=== PATIENT | male | born 1985 | race Caucasian/White ===

== ENCOUNTER 2019-11-07 23:33 | Emergency (ER) | payer SELFPAY ==
[~2019-11-07] VITALS: Ht 172.7 cm; Wt 81.6 kg
[2019-11-07 23:34] VITALS: BP 144/88
[2019-11-08] MEDS ORDERED: LIDOCAINE 1% Multi-Dose 20 ML VIAL. ONE (02:35)
[2019-11-08] MEDS ORDERED: DIPHTH,PERTUSS(ACELL),TET TOX 0.5 ML DISP.SYRIN. VAX IM ONE ×2 (02:35→03:00)
[2019-11-08] MEDS ORDERED: LIDOCAINE 1% Multi-Dose 20 ML VIAL. INJ ONE ×2 (02:45)
[2019-11-08] MEDS ORDERED: HYDROcodone/APAP 5/325MG 1 TAB TABLET ONE (04:38)
[2019-11-08] MEDS ORDERED: HYDROcodone/APAP 5/325MG 1 TAB TABLET PO ONE (05:00)
[2019-11-08] MEDS ORDERED: AMOX1TAB61 PO (05:14)
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
== END 2019-11-08 05:22 | disposition home or self-care (01) ==
LOC: ER 23:33
DX: S41.011A Laceration without foreign body of right shoulder, initial encounter (principal); F17.200 Nicotine dependence, unspecified, uncomplicated; F12.90 Cannabis use, unspecified, uncomplicated; X99.1XXA Assault by knife, initial encounter; Y93.89 Activity, other specified; Y92.89 Other specified places as the place of occurrence of the external cause; Y99.8 Other external cause status
CPT/HCPCS: 12004; 90471; 90715; 99283

== ENCOUNTER 2021-01-06 20:55 | Inpatient (IN) | payer OTHER ==
[~2021-01-06] VITALS: Ht 172.7 cm; Wt 86.5 kg
[~2021-01-06 20:55] MED LIST: AMOX1TAB61 PO
[2021-01-06] MEDS ORDERED: DOCUSATE SODIUM 100 MG CAPSULE. PO PRN (21:30)
[2021-01-06] MEDS ORDERED: ACETAMINOPHEN 325 MG TABLET. PO PRN (21:30)
[2021-01-06] MEDS ORDERED: LORazepam 0.5 MG TABLET PO PRN (21:30)
[2021-01-06] MEDS ORDERED: MAG HYDROX/ALUMINUM HYD/SIMETH 30 ML ORAL.SUSP PO PRN (21:30)
[2021-01-06] MEDS ORDERED: ALBUTEROL SULFATE 2.5 MG/3 ML NEBU. NEB PRN (21:30)
[2021-01-06] MEDS ORDERED: guaiFENesin ORAL 200 MG/10 ML LIQUID. PO PRN (21:30)
[2021-01-06] MEDS ORDERED: SODIUM PHOSPHATES 19/7GM 133 ML ENEMA. PR PRN (21:30)
[2021-01-06] MEDS ORDERED: 0.9 % SODIUM CHLORIDE 10 ML DISP.SYRIN. IV PRN (21:30)
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
[2021-01-06 21:39] VITALS: BP 139/80
[2021-01-06] MEDS ORDERED: HYDROcodon/APAP 7.5/325MG ORAL 15 ML SOLUTION PO PRN (21:45)
[2021-01-06] MEDS: ENOXAPARIN 40 MG/0.4 ML SYRINGE. SQ SCH (22:17)
[2021-01-06] MEDS: ONDANSETRON PF 4 MG/2 ML VIAL. IV PRN (22:17)
[2021-01-06] MEDS: IV NORMAL SALINE 1000ML BAG 1,000 ML IV SCH (22:18)
[2021-01-06] MEDS: HYDROmorphone 2 MG/ML VIAL IVP PRN (22:20)
[2021-01-06 22:55] VITALS: BP 142/81
[2021-01-07] MEDS: HYDROmorphone 2 MG/ML VIAL IVP PRN ×2 (02:49→07:57)
[2021-01-07 03:04] VITALS: BP 148/83
[2021-01-07 07:00] VITALS: BP 129/74
[2021-01-07] MEDS: IV NORMAL SALINE 1000ML BAG 1,000 ML IV SCH ×2 (07:56→17:30)
[2021-01-07] MEDS: ONDANSETRON PF 4 MG/2 ML VIAL. IV PRN (07:57)
[2021-01-07] MEDS ORDERED: FLU VACC QS 2020-21(6MOS+)/PF 0.5 ML SYRINGE. VAX IM ONE (09:00)
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
[2021-01-07] MEDS ORDERED: HYDROmorphone 2 MG/ML VIAL IVP PRN (10:15)
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
[2021-01-07] MEDS: HYDROcodone/APAP 5/325MG 1 TAB TABLET PO PRN ×3 (10:51→20:31)
[2021-01-07 11:00] VITALS: BP 117/77
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
[2021-01-07 15:00] VITALS: BP 119/69
[2021-01-07 19:45] VITALS: BP 116/69
[2021-01-07] MEDS: NICOTINE 21MG PATCH. TD SCH (20:31)
[2021-01-07 22:37] VITALS: BP 131/73
[2021-01-07] MEDS: ENOXAPARIN 40 MG/0.4 ML SYRINGE. SQ SCH (23:39)
[2021-01-08 03:00] VITALS: BP 111/58
[2021-01-08] MEDS: IV NORMAL SALINE 1000ML BAG 1,000 ML IV SCH (03:30)
[2021-01-08 07:00] VITALS: BP 127/73
[2021-01-08] MEDS: HYDROcodone/APAP 5/325MG 1 TAB TABLET PO PRN (08:17)
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
[2021-01-08] MEDS: NICOTINE 21MG PATCH. TD SCH (09:00)
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
[2021-01-08] MEDS ORDERED: AMOX1TAB61 PO (10:22)
[2021-01-08] MEDS ORDERED: HYDR-2761 PO (10:22)
[2021-01-08] MEDS ORDERED: ACET325T9 PO (10:22)
[2021-01-08] MEDS ORDERED: DOCU-153 PO (10:22)
--- NOTE | 2021-01-08 10:23 | DISCH ---
DISCHARGE INSTRUCTIONS Condition on Discharge Condition on Discharge: Guarded Activity After Discharge Activity Instructions for Disc: Activity as tolerated Bathing Instructions: Shower-keep dressing dry Lifting Instructions after Dis: No heavy lifting, No pulling or pushing Driving Instructions after Dis: Do not drive Diet after Discharge Diet after Discharge: Regular Liquid Texture: Thin Liquid Checks after Discharge Checks after discharge: Check blood press - daily Contacting the DR. after DC Call your doctor for: If your condition worsens Follow-Up Follow up with: [facility] tomorrow, ER Treatment/Equipment after DC Adaptive Equipment Issued: JUAN Sánchez MD Jan 08, 2021 10:23
[2021-01-08 11:00] VITALS: BP 118/75
--- NOTE | 2021-01-08 12:44 | NUR ---
SS following up with discharge planning. SS reviewed pt chart and discussed with pt RN. Pt is currently on room air. Discharge order on the chart for home with self care.
--- NOTE | 2021-01-08 16:40 | NUR ---
Discharged patient home. Discharge instructions given. PIV and heart monitor removed. Escorted patient off unit per wheelchair int a private vehicle.
== END 2021-01-08 16:15 | disposition home or self-care (01) | DRG 156 ==
LOC: 2 SOUTH 20:55
PROVIDERS: ADMIT Family Medicine; ATTEND Family Medicine
DX: S02.2XXA Fracture of nasal bones, initial encounter for closed fracture (principal); S01.01XA Laceration without foreign body of scalp, initial encounter; F15.10 Other stimulant abuse, uncomplicated; F43.10 Post-traumatic stress disorder, unspecified; F32.9 Major depressive disorder, single episode, unspecified; J84.10 Pulmonary fibrosis, unspecified; F41.9 Anxiety disorder, unspecified; Z83.3 Family history of diabetes mellitus; Z87.828 Personal history of other (healed) physical injury and trauma; Y08.89XA Assault by other specified means, initial encounter; Y93.89 Activity, other specified; Y92.89 Other specified places as the place of occurrence of the external cause; Y99.8 Other external cause status; Z80.9 Family history of malignant neoplasm, unspecified
CPT/HCPCS: 70450; 99406; J1170; J1650; J2405; J7030; 97110-GP; 97116-GP; G0378